=== PATIENT | female | born 1980 | race Caucasian/White ===

== ENCOUNTER 2016-12-04 01:11 | Emergency (ER) | payer OTHER ==
[~2016-12-04 01:11] MED LIST: METHADONE HCL10 MG PO; NORCO1 TA1 PO; PANTOPRAZOLE SO40 MG PO
--- NOTE | 2016-12-04 01:51 | ED ORDER SUMMARY ---
..... Patient: QUENTIN PALACIOS OrderSheet [facility] VisitID: [id number] [place] [address] 35y, F Registration Date/Time: 12/04/2016 ORDER SHEET Weight: 86.1 kg (stated) Allergies: Codeine GENERAL ORDERS: Ankle 3 or 4V Right Urgent (:12/04/2016 [facility]) (Ack 1:34 CHategekimana) (1:42 CBadeola R.N.) Foot 3V Right Urgent [facility] (Ack 1:34 Wilmerekimana) (1:42 Vera R.N.) - (cast shoe) (:[facility]2016 [facility] (1:55 CHategekimana) Crutches (after x-ray) (:[facility]/04/2016 [facility] (1:55 CHategekimana) MEDICATION ORDERS: Ibuprofen PO 600 mg (NOW) (01:12/04/2016 [facility] (1:37 Eboni R.N.) IV FLUIDS: ORDER SHEET NOTES: [Electronically signed by Dania Baker R.N. (02:12/04/2016)] [Electronically signed by James Lombardi DO (03:33 12/04/2016)] [Electronically locked/signed by Dania Baker R.N. (02:12/04/2016)]
--- NOTE | 2016-12-04 01:51 | ED CLINICAL REPORT ---
Clinical Report - Physicians/Mid Levels [facility] [address] [place] [address] 12/04/2016 1:12 [id number] Time Seen: 01:27. Arrived- By private vehicle. Historian- patient. HISTORY OF PRESENT ILLNESS Chief Complaint: LOWER EXTREMITY PAIN and ; PROBLEM IN THE RIGHT FOOT. Modifying factors- worsened by walking and movement. Relieved by remaining still. This started about 1 week ago and is still present. It was gradual in onset and has been waxing/waning. Severity is described as being moderate. The quality is noted to be "pain". No radiation. Symptoms located in the area of the right foot. The patient has not had redness. No swelling, sensory loss or motor loss. She has had difficulty walking. Patient notes the possibility of an injury. Similar symptoms previously: Recent medical care: Not recently seen/assessed. REVIEW OF SYSTEMS No cough, chest pain, difficulty breathing, fever or skin rash. No neck pain, back pain, headache, blurred vision or abdominal pain. No vomiting, diarrhea, black stools, difficulty with urination or bloody stools. PAST HISTORY ( PCP: [facility] PROBLEMS: Cholecystitis. Gallstone(s). Dental Abscess. Cholelithiasis. Rectal Bleed. Fall. Back Pain. Contusion. . Asthma. Dental Caries. Dental Pain SURGERIES: Cholecystectomy. Dental Surgery. Left hand surgery. Tubal Ligation). SOCIAL HISTORY Smoker- current status unknown. History of drug use: marijuana. No alcohol use. Residence: [place]. ADDITIONAL NOTES The nursing notes have been reviewed. PHYSICAL EXAM Vital Signs: 12/04/2016 01:16 BP: 132/81. HR: 104. RR: 18. O2 saturation: 98%. Temp: 97.7 F. Pain level now: 7/10. Appearance: Alert. Oriented X3. Anxious. Patient in mild distress. Eyes: Eyes normal inspection. No pale conjunctivae or scleral icterus. Neck: Normal inspection. CVS: Tachycardia. Heart sounds normal. Respiratory: No respiratory distress. Breath sounds normal. Abdomen: Soft and nontender. Back: Normal inspection. No tenderness. Skin: Skin intact. Skin warm and dry. Normal skin color. Normal skin turgor. Extremities: Right ankle: moderate tenderness localized to the lateral ligaments and malleolus, medial ligaments and malleolus, proximal foot and dorsolateral foot. Neurovascular intact distally. No ligamentous laxity present. No erythema, swelling, laceration, abrasion or ecchymosis. No puncture wound, foreign body or deformity. No limitation in ROM. Right foot: moderate tenderness located in the proximal aspect of the mid foot. Neurovascular intact distally. No erythema, swelling, laceration, abrasion or ecchymosis. No puncture wound, foreign body or deformity. No signs of infection involving the lower extremities. No calf tenderness. No tenderness in other extremity areas. Extremities otherwise negative. ( no proximal fibular tenderness). Neuro, Vascular and Tendons: No pulse deficit present. Lower extremity capillary refill not prolonged. Neuro: Oriented X 3. No motor deficit. No sensory deficit. LABS, X-RAYS, AND EKG Rt Ankle X-ray: No fracture. Normal alignment. No bony lesion or air in the soft tissue. Soft tissues normal. Joint spaces normal. Views: AP, lateral, mortise and oblique. Technique: good. The X-rays were interpreted contemporaneously by me. Rt Foot X-ray: No fracture. Normal alignment. No bony lesion, air in the soft tissue or foreign body. Soft tissues normal. Joint spaces normal. Views: AP, lateral and oblique. Technique: good. The X-rays were interpreted contemporaneously by me. Pulse Oximetry: 12/04/2016 01:16 O2 saturation: 98%. (FIO2 - room air). Interpretation: normal. PROGRESS AND PROCEDURES PROCEDURES (Cast shoe applied by [employer] for comfort and crutches given). Course of Care: Ibuprofen 600 mg PO given. 12/04/2016 02:06 BP: 137/88. HR: 79. RR: 18. O2 saturation: 97%. Pain level now: 10. Patient/family counseled. Old ED records reviewed. Disposition: Discharged. Condition: stable and improved. CLINICAL IMPRESSION Sprain of the tibiofibular, calcaneofibular and talofibular ligament of the right ankle and tarsal and tarsometatarsal ligaments of the right foot. Chronic substance abuse- tobacco (cigarettes), marijuana with anxiety. Clinical picture does not suggest cellulitis, abscess, deep venous thrombosis, superficial thrombophlebitis or atherosclerotic arterial disease. Clinical picture does not suggest claudication, acute arterial occlusion in the lower extremity, lumbar radiculopathy or a skin ulceration. INSTRUCTIONS Apply ice. Use crutches as needed. Elevate affected areas above chest level. Wear stiff soled shoe until released. You may walk and bear weight as tolerated. Do not work for two days. Warnings: Further evaluation is necessary in order to obtain test results and conduct further tests. It is very important to follow up with a physician. GENERAL WARNINGS: Return or contact your physician immediately if your condition worsens or changes unexpectedly, if not improving as expected, or if other problems arise. Your Current Medications: CONTINUE TAKING THE FOLLOWING MEDICATIONS: Methadose Oral : 45 mg daily. Prescription Medications: Ibuprofen 600mg tablets: take 1 tablet orally every 8 hours as needed for pain. Dispense thirty (30). No refills. OTC Medications: Acetaminophen (available over the counter): take according to label instructions. Follow-up: Follow up with your doctor in about three days. Follow-up with: Valentin Milton DPM, Podiatry, , [address] [facility], [place] [phone] Follow up in about three days. Call for the next available appointment. Follow-up with: [facility], , , [address], [facility], [id number]; [facility], , , [address] [place] [address] [place], Follow up in about three days. (Electronically signed by James Lombardi DO 12/04/2016 3:33)
--- NOTE | 2016-12-04 01:51 | ED NURSING NOTES ---
Clinical Report - Nurses [place] [address] [place] [address] 12/04/2016 1:12 Patient: QUENTIN PALACIOS TRIAGE Triage time 01:15. Acuity: LEVEL 4. Chief Complaint: RIGHT LOWER EXTREMITY PAIN. --01:22 Dania Baker R.N. 01:16 12/04/16. BP: 132/81 taken on the right arm, while lying. HR: 104 (regular and tachycardic). RR: 18. O2 saturation: 98% on room air. Temp: 97.7 F (oral). Pain level now: 02/04. --01:22 Dania Baker R.N. Weight: 86.1 kg stated. Height/Length: 63 inches Per Patient. BMI: 33.6. --01:18 Dania Baker R.N. Medications Methadose Oral 45 mg, daily. --01:19 Dania Baker R.N. Allergies Codeine. --01:19 Dania Baker R.N. History Arrived by private vehicle. Historian: patient. Unaccompanied. Primary physician ([facility]). No injury occurred. This occurred (week). ( pt reports feel like "something is chewing on the inside of my foot"). PAST MEDICAL HX: Last normal menstrual period- 2 days ago. 6. Para 6. SOCIAL HX: Light tobacco smoker (cigarette)- less than 1/2 a pack per day. History of occasional drug use: marijuana. No alcohol use. SELF HARM ASSESSMENT: A self harm assessment was performed. The patient answered "no" to the question "Have you recently felt down, depressed, or hopeless?", "Have you noticed less interest or pleasure in doing things?", "Do you have thoughts of harming or killing yourself?", "Are you here because you tried to hurt yourself?", "Have you ever tried to hurt yourself before today?", "Have you recently had thoughts about harming or killing others?" and "Do you have any dangerous items in your possession?". NUTRITIONAL RISK ASSESSMENT: The nutritional risk assessment revealed no deficiencies. FUNCTIONAL ASSESSMENT: Functional assessment: no impairments noted. --:22 Dania Baker R.N. PROBLEMS: Cholecystitis. Gallstone(s). Dental Abscess. Cholelithiasis. Rectal Bleed. Immunizations. Fall. Back Pain. Contusion. Tetanus Status. . LNMP - Last Normal Menstrual Period. Asthma. --:20 Dania Baker R.N. Dental Caries [RuleOut]. Dental Pain [RuleOut]. --:20 Dania Baker R.N. ADDITIONAL SURGERIES: Cholecystectomy. Dental Surgery. Left hand surgery. Tubal Ligation. --:20 Dania Baker R.N. Interventions ID band on patient. --:22 Dania Baker R.N. PHYSICAL ASSESSMENT To room via wheelchair. GENERAL / NEURO / PSYCH: Appears in no acute distress. Appears anxious. EXTREMITIES: Extremity pulses are within normal limits. Extremities exhibit normal ROM. Neuro-vascular status intact to the extremity. No lower extremity edema. Normal gait. Right foot. Limited weight bearing secondary to pain. SKIN: Skin intact. Skin is warm and dry. --:23 Dania Baker R.N. NURSING PROGRESS NOTES Two patient identifiers checked. Call light placed in reach. Side rails up x 1. Bed placed in lowest position. Brakes of bed on. --:23 Dania Baker R.N. Patient ready for evaluation- chart flagged. --:23 Dania Baker R.N. 01:37 12/04/2016 Ibuprofen PO 600 mg given. Allergies verified and confirmed 5 rights. --01:37 Massiel Sy ( 0155 cast shoe and crutches applied.). --01:59 Juani Daniels. DISPOSITION / DISCHARGE Condition at departure: improved and stable. No learning barriers present. Discharge instructions provided and reviewed with the patient. Reviewed medication(s) side effects, precautions, dosing and course information. Prescription(s) given to the patient. Activity restrictions (minimal use of injured extremity and rest) reviewed. Work note given. Patient verbalized understanding. Written instructions provided in Yi. The patient was discharged home and unaccompanied at time of discharge. She left the Emergency Department ambulatory on crutches and via private vehicle. Patient driving. --02:08 Dania Baker R.N. 02:06 12/04/16. BP: 137/88 taken on the left arm, while sitting. HR: 79. RR: 18 (regular and unlabored). O2 saturation: 97% on room air. Temp: deferred. Pain level now: 11/05. --02:08 Dania Baker R.N. Departure time: 0203. --02:08 Dania Baker R.N. Locked/Released at 12/04/2016 2:08 by Dania Baker R.N.
--- NOTE | 2016-12-04 01:51 | ED ORDER SUMMARY ---
..... Patient: QUENTIN PALACIOS OrderSheet [facility] VisitID: [id number] [place] [address] 35y, F Registration Date/Time: 12/04/2016 ORDER SHEET Weight: 86.1 kg (stated) Allergies: Codeine GENERAL ORDERS: Ankle 3 or 4V Right Urgent (:12/04/2016 [facility]) (Ack 1:34 CHategekimana) (1:42 CBadeola R.N.) Foot 3V Right Urgent [facility] (Ack 1:34 Wilmerekimana) (1:42 Vera R.N.) - (cast shoe) (:[facility]/04/2016 [facility] (1:55 CHategekimana) Crutches (after x-ray) (:[facility]/04/2016 [facility] (1:55 CHategekimana) MEDICATION ORDERS: Ibuprofen PO 600 mg (NOW) (01:12/04/2016 [facility] (1:37 Eboni R.N.) IV FLUIDS: ORDER SHEET NOTES: [Electronically signed by Dania Baker R.N. (02:12/04/2016)] [Electronically signed by James Lombardi DO (03:33 12/04/2016)] [Electronically locked/signed by Dania Baker R.N. (02:12/04/2016)]
--- NOTE | 2016-12-04 01:51 | ED NURSING NOTES ---
Clinical Report - Nurses [place] [address] [place] [address] 12/04/2016 1:12 Patient: QUENTIN PALACIOS TRIAGE Triage time 01:15. Acuity: LEVEL 4. Chief Complaint: RIGHT LOWER EXTREMITY PAIN. --01:22 Dania Baker R.N. 01:16 12/04/16. BP: 132/81 taken on the right arm, while lying. HR: 104 (regular and tachycardic). RR: 18. O2 saturation: 98% on room air. Temp: 97.7 F (oral). Pain level now: 02/04. --01:22 Dania Baker R.N. Weight: 86.1 kg stated. Height/Length: 63 inches Per Patient. BMI: 33.6. --01:18 Dania Baker R.N. Medications Methadose Oral 45 mg, daily. --01:19 Dania Baker R.N. Allergies Codeine. --01:19 Dania Baker R.N. History Arrived by private vehicle. Historian: patient. Unaccompanied. Primary physician ([facility]). No injury occurred. This occurred (week). ( pt reports feel like "something is chewing on the inside of my foot"). PAST MEDICAL HX: Last normal menstrual period- 2 days ago. 6. Para 6. SOCIAL HX: Light tobacco smoker (cigarette)- less than 1/2 a pack per day. History of occasional drug use: marijuana. No alcohol use. SELF HARM ASSESSMENT: A self harm assessment was performed. The patient answered "no" to the question "Have you recently felt down, depressed, or hopeless?", "Have you noticed less interest or pleasure in doing things?", "Do you have thoughts of harming or killing yourself?", "Are you here because you tried to hurt yourself?", "Have you ever tried to hurt yourself before today?", "Have you recently had thoughts about harming or killing others?" and "Do you have any dangerous items in your possession?". NUTRITIONAL RISK ASSESSMENT: The nutritional risk assessment revealed no deficiencies. FUNCTIONAL ASSESSMENT: Functional assessment: no impairments noted. --:22 Dania Baker R.N. PROBLEMS: Cholecystitis. Gallstone(s). Dental Abscess. Cholelithiasis. Rectal Bleed. Immunizations. Fall. Back Pain. Contusion. Tetanus Status. . LNMP - Last Normal Menstrual Period. Asthma. --:20 Dania Baker R.N. Dental Caries [RuleOut]. Dental Pain [RuleOut]. --:20 Dania Baker R.N. ADDITIONAL SURGERIES: Cholecystectomy. Dental Surgery. Left hand surgery. Tubal Ligation. --:20 Dania Baker R.N. Interventions ID band on patient. --:22 Dania Baker R.N. PHYSICAL ASSESSMENT To room via wheelchair. GENERAL / NEURO / PSYCH: Appears in no acute distress. Appears anxious. EXTREMITIES: Extremity pulses are within normal limits. Extremities exhibit normal ROM. Neuro-vascular status intact to the extremity. No lower extremity edema. Normal gait. Right foot. Limited weight bearing secondary to pain. SKIN: Skin intact. Skin is warm and dry. --:23 Dania Baker R.N. NURSING PROGRESS NOTES Two patient identifiers checked. Call light placed in reach. Side rails up x 1. Bed placed in lowest position. Brakes of bed on. --:23 Dania Baker R.N. Patient ready for evaluation- chart flagged. --:23 Dania Baker R.N. 01:37 12/04/2016 Ibuprofen PO 600 mg given. Allergies verified and confirmed 5 rights. --01:37 Massiel Sy ( 0155 cast shoe and crutches applied.). --01:59 Juani Daniels. DISPOSITION / DISCHARGE Condition at departure: improved and stable. No learning barriers present. Discharge instructions provided and reviewed with the patient. Reviewed medication(s) side effects, precautions, dosing and course information. Prescription(s) given to the patient. Activity restrictions (minimal use of injured extremity and rest) reviewed. Work note given. Patient verbalized understanding. Written instructions provided in Sami. The patient was discharged home and unaccompanied at time of discharge. She left the Emergency Department ambulatory on crutches and via private vehicle. Patient driving. --02:08 Dania Baker R.N. 02:06 12/04/16. BP: 137/88 taken on the left arm, while sitting. HR: 79. RR: 18 (regular and unlabored). O2 saturation: 97% on room air. Temp: deferred. Pain level now: 11/05. --02:08 Dania Baker R.N. Departure time: 0203. --02:08 Dania Baker R.N. Locked/Released at 12/04/2016 2:08 by Dania Baker R.N.
--- NOTE | 2016-12-04 01:51 | ED CLINICAL REPORT ---
Clinical Report - Physicians/Mid Levels [facility] [address] [place] [address] 12/04/2016 1:12 [id number] Time Seen: 01:27. Arrived- By private vehicle. Historian- patient. HISTORY OF PRESENT ILLNESS Chief Complaint: LOWER EXTREMITY PAIN and ; PROBLEM IN THE RIGHT FOOT. Modifying factors- worsened by walking and movement. Relieved by remaining still. This started about 1 week ago and is still present. It was gradual in onset and has been waxing/waning. Severity is described as being moderate. The quality is noted to be "pain". No radiation. Symptoms located in the area of the right foot. The patient has not had redness. No swelling, sensory loss or motor loss. She has had difficulty walking. Patient notes the possibility of an injury. Similar symptoms previously: Recent medical care: Not recently seen/assessed. REVIEW OF SYSTEMS No cough, chest pain, difficulty breathing, fever or skin rash. No neck pain, back pain, headache, blurred vision or abdominal pain. No vomiting, diarrhea, black stools, difficulty with urination or bloody stools. PAST HISTORY ( PCP: [facility] PROBLEMS: Cholecystitis. Gallstone(s). Dental Abscess. Cholelithiasis. Rectal Bleed. Fall. Back Pain. Contusion. . Asthma. Dental Caries. Dental Pain SURGERIES: Cholecystectomy. Dental Surgery. Left hand surgery. Tubal Ligation). SOCIAL HISTORY Smoker- current status unknown. History of drug use: marijuana. No alcohol use. Residence: [place]. ADDITIONAL NOTES The nursing notes have been reviewed. PHYSICAL EXAM Vital Signs: 12/04/2016 01:16 BP: 132/81. HR: 104. RR: 18. O2 saturation: 98%. Temp: 97.7 F. Pain level now: 7/10. Appearance: Alert. Oriented X3. Anxious. Patient in mild distress. Eyes: Eyes normal inspection. No pale conjunctivae or scleral icterus. Neck: Normal inspection. CVS: Tachycardia. Heart sounds normal. Respiratory: No respiratory distress. Breath sounds normal. Abdomen: Soft and nontender. Back: Normal inspection. No tenderness. Skin: Skin intact. Skin warm and dry. Normal skin color. Normal skin turgor. Extremities: Right ankle: moderate tenderness localized to the lateral ligaments and malleolus, medial ligaments and malleolus, proximal foot and dorsolateral foot. Neurovascular intact distally. No ligamentous laxity present. No erythema, swelling, laceration, abrasion or ecchymosis. No puncture wound, foreign body or deformity. No limitation in ROM. Right foot: moderate tenderness located in the proximal aspect of the mid foot. Neurovascular intact distally. No erythema, swelling, laceration, abrasion or ecchymosis. No puncture wound, foreign body or deformity. No signs of infection involving the lower extremities. No calf tenderness. No tenderness in other extremity areas. Extremities otherwise negative. ( no proximal fibular tenderness). Neuro, Vascular and Tendons: No pulse deficit present. Lower extremity capillary refill not prolonged. Neuro: Oriented X 3. No motor deficit. No sensory deficit. LABS, X-RAYS, AND EKG Rt Ankle X-ray: No fracture. Normal alignment. No bony lesion or air in the soft tissue. Soft tissues normal. Joint spaces normal. Views: AP, lateral, mortise and oblique. Technique: good. The X-rays were interpreted contemporaneously by me. Rt Foot X-ray: No fracture. Normal alignment. No bony lesion, air in the soft tissue or foreign body. Soft tissues normal. Joint spaces normal. Views: AP, lateral and oblique. Technique: good. The X-rays were interpreted contemporaneously by me. Pulse Oximetry: 12/04/2016 01:16 O2 saturation: 98%. (FIO2 - room air). Interpretation: normal. PROGRESS AND PROCEDURES PROCEDURES (Cast shoe applied by [employer] for comfort and crutches given). Course of Care: Ibuprofen 600 mg PO given. 12/04/2016 02:06 BP: 137/88. HR: 79. RR: 18. O2 saturation: 97%. Pain level now: 10. Patient/family counseled. Old ED records reviewed. Disposition: Discharged. Condition: stable and improved. CLINICAL IMPRESSION Sprain of the tibiofibular, calcaneofibular and talofibular ligament of the right ankle and tarsal and tarsometatarsal ligaments of the right foot. Chronic substance abuse- tobacco (cigarettes), marijuana with anxiety. Clinical picture does not suggest cellulitis, abscess, deep venous thrombosis, superficial thrombophlebitis or atherosclerotic arterial disease. Clinical picture does not suggest claudication, acute arterial occlusion in the lower extremity, lumbar radiculopathy or a skin ulceration. INSTRUCTIONS Apply ice. Use crutches as needed. Elevate affected areas above chest level. Wear stiff soled shoe until released. You may walk and bear weight as tolerated. Do not work for two days. Warnings: Further evaluation is necessary in order to obtain test results and conduct further tests. It is very important to follow up with a physician. GENERAL WARNINGS: Return or contact your physician immediately if your condition worsens or changes unexpectedly, if not improving as expected, or if other problems arise. Your Current Medications: CONTINUE TAKING THE FOLLOWING MEDICATIONS: Methadose Oral : 45 mg daily. Prescription Medications: Ibuprofen 600mg tablets: take 1 tablet orally every 8 hours as needed for pain. Dispense thirty (30). No refills. OTC Medications: Acetaminophen (available over the counter): take according to label instructions. Follow-up: Follow up with your doctor in about three days. Follow-up with: Valentin Milton DPM, Podiatry, , [address] [facility], [place] [phone] Follow up in about three days. Call for the next available appointment. Follow-up with: [facility], , , [address], [facility], [address]; [facility], , , [address] [place] [address] [place], Follow up in about three days. (Electronically signed by James Lombardi DO 12/04/2016 3:33)
--- NOTE | 2016-12-04 03:34 | ED MED RECONCILIATION SUMMARY ---
Patient: QUENTIN PALACIOS Medication Reconciliation Report [facility] VisitID: [id number] [address] [place] [address] 35y, F Registration Date/Time: 12/04/2016 Weight: 86.1 kg Height/Length: 63 in. BMI: 33.6 ALLERGIES: Codeine The patient's Home Medications are listed below: CONTINUE TAKING THE FOLLOWING MEDICATIONS: Methadose Oral 45 mg, daily The source(s) of the original Home Medication information: Not obtained. The following Medications were given to the patient in the Emergency Department: Ibuprofen [PO] PO 600 mg, administered: 12/04/2016 1:37:00 AM The following Medications were prescribed to the patient: Acetaminophen (available over the counter): take according to label instructions. -- James Lombardi DO Ibuprofen 600mg tablets: take 1 tablet orally every 8 hours as needed for pain. Dispense thirty (30). No refills. -- James Lombardi DO
--- NOTE | 2016-12-04 03:34 | ED DISCHARGE INSTRUCTIONS ---
Patient: QUENTIN PALACIOS General Instructions [facility] VisitID: [id number] [address] [place] [address] 35y, F Registration Date/Time: 12/04/2016 Sprain of the tibiofibular, calcaneofibular and talofibular ligament of the right ankle and tarsal and tarsometatarsal ligaments of the right foot. Chronic substance abuse- tobacco (cigarettes), marijuana with anxiety. INSTRUCTIONS Apply ice. Use crutches as needed. Elevate affected areas above chest level. Wear stiff soled shoe until released. You may walk and bear weight as tolerated. Do not work for two days. Warnings: Further evaluation is necessary in order to obtain test results and conduct further tests. It is very important to follow up with a physician. GENERAL WARNINGS: Return or contact your physician immediately if your condition worsens or changes unexpectedly, if not improving as expected, or if other problems arise. Your Current Medications: CONTINUE TAKING THE FOLLOWING MEDICATIONS: Methadose Oral : 45 mg daily. Prescription Medications: Ibuprofen 600mg tablets: take 1 tablet orally every 8 hours as needed for pain. Dispense thirty (30). No refills. OTC Medications: Acetaminophen (available over the counter): take according to label instructions. Follow-up: Follow up with your doctor in about three days. Follow-up with: Valentin Milton DPM, Podiatry, , [address] [place] [address]. [address], [facility] [address] Follow up in about three days. Call for the next available appointment. Follow-up with: [facility], , , [address], , [place], [address]; [facility], , , [address] [place] [address], [place], Follow up in about three days. ADDITIONAL INFORMATION Sprain, Ankle,With X-Ray A sprain is an injury to the ligaments or capsule that holds a joint together. There are no broken bones. Most sprains take from four to six weeks to heal. If the ligament is completely torn (severe sprain), it can take several months to recover. Mild to moderate sprains may be treated with an elastic wrap or an in-shoe splint to provide support and prevent re-injury. A mild sprain may not require any additional support. A severe sprain may require surgery to repair. Home care The following guidelines will help you care for your injury at home: Stay off the injured leg as much as possible until you can walk on it without pain. If you have a lot of pain with walking, crutches or a walker may be prescribed. (These can be rented or purchased at many pharmacies and surgical or orthopedic supply stores). Follow your doctor's advice regarding when to begin bearing weight on that leg. Keep your leg elevated to reduce pain and swelling. When sleeping, place a pillow under the injured leg. When sitting, support the injured leg so it is level with your waist. This is very important during the first 48 hours. Apply an ice pack (ice cubes in a plastic bag, wrapped in a towel) over the injured area for 20 minutes every 12 hours the first day. You can place the ice pack directly over the splint/cast. If you were given a boot, open it to apply the ice pack. Continue with ice packs 34 times a day for the next two days, then as needed for the relief of pain and swelling. You may use acetaminophen or ibuprofen to control pain, unless another pain medicine was prescribed. If you have chronic liver or kidney disease or ever had a stomach ulcer or GI bleeding, talk with your doctor before using these medicines. You may return to sports after healing, when you can run without pain. A sprained ankle is at risk for re-injury during the first six weeks. During that time, protect your ankle with an in-shoe splint that prevents tilting of your ankle from side to side. This is very important if you do active work or play sports during that time. Follow-up care Any X-rays you had today dont show any broken bones, breaks, or fractures. Sometimes fractures dont show up on the first X-ray. Bruises and sprains can sometimes hurt as much as a fracture. These injuries can take time to heal completely. If your symptoms dont improve or they get worse, talk with your doctor. You may need a repeat X-ray. When to seek medical care Get prompt medical attention if any of the following occur: The plaster cast or splint gets wet or soft The fiberglass cast or splint gets wet and does not dry for 24 hours Pain or swelling increases, or redness appears Toes become cold, blue, numb or tingly Re-injure your ankle Sprain, Foot A sprain is a stretching or tearing of the ligaments that hold a joint together. There are no broken bones. Sprains take from 36 weeks to heal. A sprain may be treated with a splint, walking cast or special boot. Mild sprains may not require any additional support. Home care The following guidelines will help you care for your injury at home: Keep your leg elevated when sitting or lying down. This is very important during the first 48 hours to reduce swelling. Stay off the injured foot as much as possible until you can walk on it without pain. If needed, you may use crutches during the first week for this purpose. (Crutches can be rented at many pharmacies or surgical/orthopedic supply stores). You may be given a cast shoe to wear to prevent movement in your foot. If not, you can use a sandal or any shoe that does not put pressure on the injured area until the swelling and pain go away. If using a sandal, be careful not to strike your foot against anything, since another injury could make the sprain worse. Apply an ice pack (ice cubes in a plastic bag, wrapped in a towel) over the injured area for 20 minutes every 12 hours the first day. You should continue with ice packs 34 times a day for the next two days. Continue the use of ice packs for relief of pain and swelling as needed. You may use acetaminophen or ibuprofen to control pain, unless another medicine was prescribed. If you have chronic liver or kidney disease or ever had a stomach ulcer or GI bleeding, talk with your doctor before using these medicines. If you were given a splint or cast, keep it dry. Bathe with your splint/cast well out of the water, protected with a large plastic bag, rubber-banded at the top end. If a fiberglass splint or cast gets wet, you can dry it with a hair-dryer. You may return to sports after healing, when you can run without pain. Follow-up care Follow up with your doctor as directed. Any X-rays you had today dont show any broken bones, breaks, or fractures. Sometimes fractures dont show up on the first X-ray. Bruises and sprains can sometimes hurt as much as a fracture. These injuries can take time to heal completely. If your symptoms dont improve or they get worse, talk with your doctor. You may need a repeat X-ray. When to seek medical care Get prompt medical attention if any of the following occur: The plaster cast or splint gets wet or soft The fiberglass cast or splint gets wet and does not dry for 24 hours Pain or swelling increases, or redness appears Toes become cold, blue, numb, or tingly Marijuana Abuse Marijuana is the most widely used illegal drug in the [place]. It is called by various names such as pot, weed, blunts, grass, reefer, ganja, hash, hashish. It is usually smoked but can be mixed with foods or brewed as a tea. It is sometimes sold with PCP (Manuel Dust) or amphetamine mixed in it. These drugs can cause other harmful side effects. Marijuana can cause the following effects: Changes in mood (stimulated, happy, drowsy, depressed, paranoid) Hallucinations Increased heart rate and blood pressure Increased appetite Time distortion, difficulty concentrating, impaired memory Lung damage (similar to cigarettes with chronic cough, wheezing, frequent colds and bronchitis) You can become psychologically dependent on marijuana. That means the craving to use the drug is emotional or psychological rather than due to physical withdrawal. Is Marijuana Running Your Life? Here are some of the signs: Relying on marijuana to feel good, forget problems, deal with stress or to relax Wanting to be alone most of the time or only with others who use drugs Losing interest in things that used to be important Changes in school or job performance or attendance Spending a lot of time thinking about how to get marijuana Stealing or selling your things so you can buy marijuana Unable to stop using even though you may want to quit Increasing anxiety, anger,or depression Sleeping too much, changes in eating habits (weight loss or gain) Needing to use more to get the same effect Home Care Once you have become addicted to any drug, quitting is hard to do. Most people find they can't quit without help. So, dont try to do this alone. Talk to someone you trust who can support you. Seek professional help. Avoid people and places where drugs are used. That only increases the temptation to use. Follow Up with your doctor or as advised by our staff. For more information or a referral to a treatment center in your area, contact: Your local mental health center or the National Alcohol and Substance Abuse Information Center (752)-319-6576 www.addictioncareCloud [employer] National [place] on Alcoholism and Drug Dependence 557-944-GACU www.ncadd.org Marijuana Anonymous 901-380-3515 www.marijuana-anonymous.org Get Prompt Medical Attention if any of the following occur: You feel extreme depression, fear, anxiety, or anger toward yourself or others You feel out of control You feel that you may try to harm yourself or another Crutch Walking Crutch Adjustment Make sure the crutches you use are adjusted to fit you. When you stand, there should be room to fit 2-3 fingers between the top of the crutch and your armpit. Your elbow should be slightly bent when holding the hand seedling sorter. Crutch Walking: Place the crutches forward 12" in front of and 6" to the side of your feet. Lean your weight forward as you push down on the handgrips. Your weight should be on your hands and yourstrong leg, not your armpits . Let your body swing through, landing on the strong leg. Advance the crutches forward again. The crutch and the injured leg should move together. Going Up Steps: ("Up with the good") With both crutches on the same step as your feet, push down on the handgrips. Balancing with very light pressure on the weak leg, let your hands support your weight as you raise your strong leg onto the next higher step. Transfer all your weight to your strong leg (still bent) as you move the crutches up to the next step alongside the strong leg. With your weight evenly balanced on the two crutches and your strong leg, straighten your strong knee as you raise the weak leg up to the next step. Going Down Steps: ("Down with the bad") With both crutches on the same step as your feet, push down on the handgrips. With your weight evenly balanced on the two crutches and your strong leg, bend your strong knee as you lower the weak leg down to the next step. Let your strong leg support you (still bent) as you move the crutches down alongside the weak leg. Transfer your weight to your hands, balancing with very light pressure on the weak leg as you lower your strong leg alongside your weak leg. Ibuprofen Oral tablet What is this medicine? IBUPROFEN (eye BYOO proe fen) is a non-steroidal anti-inflammatory drug (NSAID). It is used for dental pain, fever, headaches or migraines, osteoarthritis, rheumatoid arthritis, or painful monthly periods. It can also relieve minor aches and pains caused by a cold, flu, or sore throat. How should I use this medicine? Take this medicine by mouth with a glass of water. Follow the directions on the prescription label. Take this medicine with food if your stomach gets upset. Try to not lie down for at least 10 minutes after you take the medicine. Take your medicine at regular intervals. Do not take your medicine more often than directed. A special MedGuide will be given to you by the pharmacist with each prescription and refill. Be sure to read this information carefully each time. Talk to your veneer jointer offbearer regarding the use of this medicine in children. Special care may be needed. What side effects may I notice from receiving this medicine? Side effects that you should report to your doctor or health client care coordinator as soon as possible: allergic reactions like skin rash, itching or hives, swelling of the face, lips, or tongue black or bloody stools, blood in the urine or in vomit breathing problems changes in vision chest pain general ill feeling or flu-like symptoms nausea or vomiting redness, blistering, peeling or loosening of the skin, including inside the mouth slurred speech or weakness on one side of the body stomach pain unexplained weight gain or swelling unusually weak or tired yellowing of eyes or skin Side effects that usually do not require medical attention (report to your doctor or health client care coordinator if they continue or are bothersome): constipation or diarrhea dizziness gas or heartburn stomach upset What may interact with this medicine? Do not take this medicine with any of the following medications: cidofovir ketorolac methotrexate pemetrexed This medicine may also interact with the following medications: alcohol aspirin diuretics lithium other drugs for inflammation like prednisone warfarin What if I miss a dose? If you miss a dose, take it as soon as you can. If it is almost time for your next dose, take only that dose. Do not take double or extra doses. Where should I keep my medicine? Keep out of the reach of children. Store at room temperature between 15 and 30 degrees C (59 and 86 degrees F). Keep container tightly closed. Throw away any unused medicine after the expiration date. What should I tell my health care provider before I take this medicine? They need to know if you have any of these conditions: asthma cigarette smoker drink more than 3 alcohol containing drinks a day heart disease or circulation problems such as heart failure or leg edema (fluid retention) high blood pressure kidney disease liver disease stomach bleeding or ulcers an unusual or allergic reaction to ibuprofen, aspirin, other NSAIDS, other medicines, foods, dyes, or preservatives or trying to get breast-feeding What should I watch for while using this medicine? Tell your doctor or healthcare professional if your symptoms do not start to get better or if they get worse. This medicine does not prevent heart attack or stroke. In fact, this medicine may increase the chance of a heart attack or stroke. The chance may increase with longer use of this medicine and in people who have heart disease. If you take aspirin to prevent heart attack or stroke, talk with your doctor or health client care coordinator. Do not take other medicines that contain aspirin, ibuprofen, or naproxen with this medicine. Side effects such as stomach upset, nausea, or ulcers may be more likely to occur. Many medicines available without a prescription should not be taken with this medicine. This medicine can cause ulcers and bleeding in the stomach and intestines at any time during treatment. Ulcers and bleeding can happen without warning symptoms and can cause . To reduce your risk, do not smoke cigarettes or drink alcohol while you are taking this medicine. You may get drowsy or dizzy. Do not drive, use machinery, or do anything that needs mental alertness until you know how this medicine affects you. Do not stand or sit up quickly, especially if you are an older patient. This reduces the risk of dizzy or fainting spells. This medicine can cause you to bleed more easily. Try to avoid damage to your teeth and gums when you brush or floss your teeth. Acetaminophen Oral tablet What is this medicine? ACETAMINOPHEN (a set a PEACE lindsay fen) is a pain reliever. It is used to treat mild pain and fever. How should I use this medicine? Take this medicine by mouth with a glass of water. Follow the directions on the package or prescription label. Take your medicine at regular intervals. Do not take your medicine more often than directed. Talk to your veneer jointer offbearer regarding the use of this medicine in children. While this drug may be prescribed for children as young as 6 years of age for selected conditions, precautions do apply. What side effects may I notice from receiving this medicine? Side effects that you should report to your doctor or health client care coordinator as soon as possible: allergic reactions like skin rash, itching or hives, swelling of the face, lips, or tongue breathing problems fever or sore throat redness, blistering, peeling or loosening of the skin, including inside the mouth trouble passing urine or change in the amount of urine unusual bleeding or bruising unusually weak or tired yellowing of the eyes or skin Side effects that usually do not require medical attention (report to your doctor or health client care coordinator if they continue or are bothersome): headache nausea, stomach upset What may interact with this medicine? alcohol imatinib isoniazid other medicines with acetaminophen What if I miss a dose? If you miss a dose, take it as soon as you can. If it is almost time for your next dose, take only that dose. Do not take double or extra doses. Where should I keep my medicine? Keep out of reach of children. Store at room temperature between 20 and 25 degrees C (68 and 77 degrees F). Protect from moisture and heat. Throw away any unused medicine after the expiration date. What should I tell my health care provider before I take this medicine? They need to know if you have any of these conditions: if you frequently drink alcohol containing drinks liver disease an unusual or allergic reaction to acetaminophen, other medicines, foods, dyes or preservatives or trying to get breast-feeding What should I watch for while using this medicine? Tell your doctor or health client care coordinator if the pain lasts more than 10 days (5 days for children), if it gets worse, or if there is a new or different kind of pain. Also, check with your doctor if a fever lasts for more than 3 days. Do not take other medicines that contain acetaminophen with this medicine. Always read labels carefully. If you have questions, ask your doctor or pharmacist. If you take too much acetaminophen get medical help right away. Too much acetaminophen can be very dangerous and cause liver damage. Even if you do not have symptoms, it is important to get help right away. You have been given the following additional information: Sprain, Ankle, With X-Ray Sprain, Foot Marijuana Abuse Crutch Walking Ibuprofen Oral tablet Acetaminophen Oral tablet You may walk and bear weight as tolerated. Do not work for two days. (Electronically signed by James Lombardi DO 12/04/2016 3:33)
--- NOTE | 2016-12-04 03:34 | ED MED RECONCILIATION SUMMARY ---
Patient: QUENTIN PALACIOS Medication Reconciliation Report [facility] VisitID: [id number] [address] [place] [address] 35y, F Registration Date/Time: 12/04/2016 Weight: 86.1 kg Height/Length: 63 in. BMI: 33.6 ALLERGIES: Codeine The patient's Home Medications are listed below: CONTINUE TAKING THE FOLLOWING MEDICATIONS: Methadose Oral 45 mg, daily The source(s) of the original Home Medication information: Not obtained. The following Medications were given to the patient in the Emergency Department: Ibuprofen [PO] PO 600 mg, administered: 12/04/2016 1:37:00 AM The following Medications were prescribed to the patient: Acetaminophen (available over the counter): take according to label instructions. -- James Lombardi DO Ibuprofen 600mg tablets: take 1 tablet orally every 8 hours as needed for pain. Dispense thirty (30). No refills. -- James Lombardi DO
--- NOTE | 2016-12-04 03:34 | ED DISCHARGE INSTRUCTIONS ---
Patient: QUENTIN PALACIOS General Instructions [facility] VisitID: [id number] [address] [place] [address] 35y, F Registration Date/Time: 12/04/2016 Sprain of the tibiofibular, calcaneofibular and talofibular ligament of the right ankle and tarsal and tarsometatarsal ligaments of the right foot. Chronic substance abuse- tobacco (cigarettes), marijuana with anxiety. INSTRUCTIONS Apply ice. Use crutches as needed. Elevate affected areas above chest level. Wear stiff soled shoe until released. You may walk and bear weight as tolerated. Do not work for two days. Warnings: Further evaluation is necessary in order to obtain test results and conduct further tests. It is very important to follow up with a physician. GENERAL WARNINGS: Return or contact your physician immediately if your condition worsens or changes unexpectedly, if not improving as expected, or if other problems arise. Your Current Medications: CONTINUE TAKING THE FOLLOWING MEDICATIONS: Methadose Oral : 45 mg daily. Prescription Medications: Ibuprofen 600mg tablets: take 1 tablet orally every 8 hours as needed for pain. Dispense thirty (30). No refills. OTC Medications: Acetaminophen (available over the counter): take according to label instructions. Follow-up: Follow up with your doctor in about three days. Follow-up with: Valentin Milton DPM, Podiatry, , [address] [place] [address]. [address], [facility] [address] Follow up in about three days. Call for the next available appointment. Follow-up with: [facility], , , [address], , [place], [address]; [facility], , , [address] [place] [address], [place], Follow up in about three days. ADDITIONAL INFORMATION Sprain, Ankle,With X-Ray A sprain is an injury to the ligaments or capsule that holds a joint together. There are no broken bones. Most sprains take from four to six weeks to heal. If the ligament is completely torn (severe sprain), it can take several months to recover. Mild to moderate sprains may be treated with an elastic wrap or an in-shoe splint to provide support and prevent re-injury. A mild sprain may not require any additional support. A severe sprain may require surgery to repair. Home care The following guidelines will help you care for your injury at home: Stay off the injured leg as much as possible until you can walk on it without pain. If you have a lot of pain with walking, crutches or a walker may be prescribed. (These can be rented or purchased at many pharmacies and surgical or orthopedic supply stores). Follow your doctor's advice regarding when to begin bearing weight on that leg. Keep your leg elevated to reduce pain and swelling. When sleeping, place a pillow under the injured leg. When sitting, support the injured leg so it is level with your waist. This is very important during the first 48 hours. Apply an ice pack (ice cubes in a plastic bag, wrapped in a towel) over the injured area for 20 minutes every 12 hours the first day. You can place the ice pack directly over the splint/cast. If you were given a boot, open it to apply the ice pack. Continue with ice packs 34 times a day for the next two days, then as needed for the relief of pain and swelling. You may use acetaminophen or ibuprofen to control pain, unless another pain medicine was prescribed. If you have chronic liver or kidney disease or ever had a stomach ulcer or GI bleeding, talk with your doctor before using these medicines. You may return to sports after healing, when you can run without pain. A sprained ankle is at risk for re-injury during the first six weeks. During that time, protect your ankle with an in-shoe splint that prevents tilting of your ankle from side to side. This is very important if you do active work or play sports during that time. Follow-up care Any X-rays you had today dont show any broken bones, breaks, or fractures. Sometimes fractures dont show up on the first X-ray. Bruises and sprains can sometimes hurt as much as a fracture. These injuries can take time to heal completely. If your symptoms dont improve or they get worse, talk with your doctor. You may need a repeat X-ray. When to seek medical care Get prompt medical attention if any of the following occur: The plaster cast or splint gets wet or soft The fiberglass cast or splint gets wet and does not dry for 24 hours Pain or swelling increases, or redness appears Toes become cold, blue, numb or tingly Re-injure your ankle Sprain, Foot A sprain is a stretching or tearing of the ligaments that hold a joint together. There are no broken bones. Sprains take from 36 weeks to heal. A sprain may be treated with a splint, walking cast or special boot. Mild sprains may not require any additional support. Home care The following guidelines will help you care for your injury at home: Keep your leg elevated when sitting or lying down. This is very important during the first 48 hours to reduce swelling. Stay off the injured foot as much as possible until you can walk on it without pain. If needed, you may use crutches during the first week for this purpose. (Crutches can be rented at many pharmacies or surgical/orthopedic supply stores). You may be given a cast shoe to wear to prevent movement in your foot. If not, you can use a sandal or any shoe that does not put pressure on the injured area until the swelling and pain go away. If using a sandal, be careful not to strike your foot against anything, since another injury could make the sprain worse. Apply an ice pack (ice cubes in a plastic bag, wrapped in a towel) over the injured area for 20 minutes every 12 hours the first day. You should continue with ice packs 34 times a day for the next two days. Continue the use of ice packs for relief of pain and swelling as needed. You may use acetaminophen or ibuprofen to control pain, unless another medicine was prescribed. If you have chronic liver or kidney disease or ever had a stomach ulcer or GI bleeding, talk with your doctor before using these medicines. If you were given a splint or cast, keep it dry. Bathe with your splint/cast well out of the water, protected with a large plastic bag, rubber-banded at the top end. If a fiberglass splint or cast gets wet, you can dry it with a hair-dryer. You may return to sports after healing, when you can run without pain. Follow-up care Follow up with your doctor as directed. Any X-rays you had today dont show any broken bones, breaks, or fractures. Sometimes fractures dont show up on the first X-ray. Bruises and sprains can sometimes hurt as much as a fracture. These injuries can take time to heal completely. If your symptoms dont improve or they get worse, talk with your doctor. You may need a repeat X-ray. When to seek medical care Get prompt medical attention if any of the following occur: The plaster cast or splint gets wet or soft The fiberglass cast or splint gets wet and does not dry for 24 hours Pain or swelling increases, or redness appears Toes become cold, blue, numb, or tingly Marijuana Abuse Marijuana is the most widely used illegal drug in the [place]. It is called by various names such as pot, weed, blunts, grass, reefer, ganja, hash, hashish. It is usually smoked but can be mixed with foods or brewed as a tea. It is sometimes sold with PCP (Manuel Dust) or amphetamine mixed in it. These drugs can cause other harmful side effects. Marijuana can cause the following effects: Changes in mood (stimulated, happy, drowsy, depressed, paranoid) Hallucinations Increased heart rate and blood pressure Increased appetite Time distortion, difficulty concentrating, impaired memory Lung damage (similar to cigarettes with chronic cough, wheezing, frequent colds and bronchitis) You can become psychologically dependent on marijuana. That means the craving to use the drug is emotional or psychological rather than due to physical withdrawal. Is Marijuana Running Your Life? Here are some of the signs: Relying on marijuana to feel good, forget problems, deal with stress or to relax Wanting to be alone most of the time or only with others who use drugs Losing interest in things that used to be important Changes in school or job performance or attendance Spending a lot of time thinking about how to get marijuana Stealing or selling your things so you can buy marijuana Unable to stop using even though you may want to quit Increasing anxiety, anger,or depression Sleeping too much, changes in eating habits (weight loss or gain) Needing to use more to get the same effect Home Care Once you have become addicted to any drug, quitting is hard to do. Most people find they can't quit without help. So, dont try to do this alone. Talk to someone you trust who can support you. Seek professional help. Avoid people and places where drugs are used. That only increases the temptation to use. Follow Up with your doctor or as advised by our staff. For more information or a referral to a treatment center in your area, contact: Your local mental health center or the National Alcohol and Substance Abuse Information Center (421)-572-6056 www.addictioncareRESAAS.1Ring [employer] [place] on Alcoholism and Drug Dependence 326-650-YNQJ www.ncadd.org Marijuana Anonymous 783-179-1122 www.marijuana-anonymous.org Get Prompt Medical Attention if any of the following occur: You feel extreme depression, fear, anxiety, or anger toward yourself or others You feel out of control You feel that you may try to harm yourself or another Crutch Walking Crutch Adjustment Make sure the crutches you use are adjusted to fit you. When you stand, there should be room to fit 2-3 fingers between the top of the crutch and your armpit. Your elbow should be slightly bent when holding the hand construction craft laborer. Crutch Walking: Place the crutches forward 12" in front of and 6" to the side of your feet. Lean your weight forward as you push down on the handgrips. Your weight should be on your hands and yourstrong leg, not your armpits . Let your body swing through, landing on the strong leg. Advance the crutches forward again. The crutch and the injured leg should move together. Going Up Steps: ("Up with the good") With both crutches on the same step as your feet, push down on the handgrips. Balancing with very light pressure on the weak leg, let your hands support your weight as you raise your strong leg onto the next higher step. Transfer all your weight to your strong leg (still bent) as you move the crutches up to the next step alongside the strong leg. With your weight evenly balanced on the two crutches and your strong leg, straighten your strong knee as you raise the weak leg up to the next step. Going Down Steps: ("Down with the bad") With both crutches on the same step as your feet, push down on the handgrips. With your weight evenly balanced on the two crutches and your strong leg, bend your strong knee as you lower the weak leg down to the next step. Let your strong leg support you (still bent) as you move the crutches down alongside the weak leg. Transfer your weight to your hands, balancing with very light pressure on the weak leg as you lower your strong leg alongside your weak leg. Ibuprofen Oral tablet What is this medicine? IBUPROFEN (eye BYOO proe fen) is a non-steroidal anti-inflammatory drug (NSAID). It is used for dental pain, fever, headaches or migraines, osteoarthritis, rheumatoid arthritis, or painful monthly periods. It can also relieve minor aches and pains caused by a cold, flu, or sore throat. How should I use this medicine? Take this medicine by mouth with a glass of water. Follow the directions on the prescription label. Take this medicine with food if your stomach gets upset. Try to not lie down for at least 10 minutes after you take the medicine. Take your medicine at regular intervals. Do not take your medicine more often than directed. A special MedGuide will be given to you by the pharmacist with each prescription and refill. Be sure to read this information carefully each time. Talk to your post anesthesia care unit nurse regarding the use of this medicine in children. Special care may be needed. What side effects may I notice from receiving this medicine? Side effects that you should report to your doctor or health critical care specialist as soon as possible: allergic reactions like skin rash, itching or hives, swelling of the face, lips, or tongue black or bloody stools, blood in the urine or in vomit breathing problems changes in vision chest pain general ill feeling or flu-like symptoms nausea or vomiting redness, blistering, peeling or loosening of the skin, including inside the mouth slurred speech or weakness on one side of the body stomach pain unexplained weight gain or swelling unusually weak or tired yellowing of eyes or skin Side effects that usually do not require medical attention (report to your doctor or health critical care specialist if they continue or are bothersome): constipation or diarrhea dizziness gas or heartburn stomach upset What may interact with this medicine? Do not take this medicine with any of the following medications: cidofovir ketorolac methotrexate pemetrexed This medicine may also interact with the following medications: alcohol aspirin diuretics lithium other drugs for inflammation like prednisone warfarin What if I miss a dose? If you miss a dose, take it as soon as you can. If it is almost time for your next dose, take only that dose. Do not take double or extra doses. Where should I keep my medicine? Keep out of the reach of children. Store at room temperature between 15 and 30 degrees C (59 and 86 degrees F). Keep container tightly closed. Throw away any unused medicine after the expiration date. What should I tell my health care provider before I take this medicine? They need to know if you have any of these conditions: asthma cigarette smoker drink more than 3 alcohol containing drinks a day heart disease or circulation problems such as heart failure or leg edema (fluid retention) high blood pressure kidney disease liver disease stomach bleeding or ulcers an unusual or allergic reaction to ibuprofen, aspirin, other NSAIDS, other medicines, foods, dyes, or preservatives or trying to get breast-feeding What should I watch for while using this medicine? Tell your doctor or healthcare professional if your symptoms do not start to get better or if they get worse. This medicine does not prevent heart attack or stroke. In fact, this medicine may increase the chance of a heart attack or stroke. The chance may increase with longer use of this medicine and in people who have heart disease. If you take aspirin to prevent heart attack or stroke, talk with your doctor or health critical care specialist. Do not take other medicines that contain aspirin, ibuprofen, or naproxen with this medicine. Side effects such as stomach upset, nausea, or ulcers may be more likely to occur. Many medicines available without a prescription should not be taken with this medicine. This medicine can cause ulcers and bleeding in the stomach and intestines at any time during treatment. Ulcers and bleeding can happen without warning symptoms and can cause . To reduce your risk, do not smoke cigarettes or drink alcohol while you are taking this medicine. You may get drowsy or dizzy. Do not drive, use machinery, or do anything that needs mental alertness until you know how this medicine affects you. Do not stand or sit up quickly, especially if you are an older patient. This reduces the risk of dizzy or fainting spells. This medicine can cause you to bleed more easily. Try to avoid damage to your teeth and gums when you brush or floss your teeth. Acetaminophen Oral tablet What is this medicine? ACETAMINOPHEN (a set a PEACE lindsay fen) is a pain reliever. It is used to treat mild pain and fever. How should I use this medicine? Take this medicine by mouth with a glass of water. Follow the directions on the package or prescription label. Take your medicine at regular intervals. Do not take your medicine more often than directed. Talk to your post anesthesia care unit nurse regarding the use of this medicine in children. While this drug may be prescribed for children as young as 6 years of age for selected conditions, precautions do apply. What side effects may I notice from receiving this medicine? Side effects that you should report to your doctor or health critical care specialist as soon as possible: allergic reactions like skin rash, itching or hives, swelling of the face, lips, or tongue breathing problems fever or sore throat redness, blistering, peeling or loosening of the skin, including inside the mouth trouble passing urine or change in the amount of urine unusual bleeding or bruising unusually weak or tired yellowing of the eyes or skin Side effects that usually do not require medical attention (report to your doctor or health critical care specialist if they continue or are bothersome): headache nausea, stomach upset What may interact with this medicine? alcohol imatinib isoniazid other medicines with acetaminophen What if I miss a dose? If you miss a dose, take it as soon as you can. If it is almost time for your next dose, take only that dose. Do not take double or extra doses. Where should I keep my medicine? Keep out of reach of children. Store at room temperature between 20 and 25 degrees C (68 and 77 degrees F). Protect from moisture and heat. Throw away any unused medicine after the expiration date. What should I tell my health care provider before I take this medicine? They need to know if you have any of these conditions: if you frequently drink alcohol containing drinks liver disease an unusual or allergic reaction to acetaminophen, other medicines, foods, dyes or preservatives or trying to get breast-feeding What should I watch for while using this medicine? Tell your doctor or health critical care specialist if the pain lasts more than 10 days (5 days for children), if it gets worse, or if there is a new or different kind of pain. Also, check with your doctor if a fever lasts for more than 3 days. Do not take other medicines that contain acetaminophen with this medicine. Always read labels carefully. If you have questions, ask your doctor or pharmacist. If you take too much acetaminophen get medical help right away. Too much acetaminophen can be very dangerous and cause liver damage. Even if you do not have symptoms, it is important to get help right away. You have been given the following additional information: Sprain, Ankle, With X-Ray Sprain, Foot Marijuana Abuse Crutch Walking Ibuprofen Oral tablet Acetaminophen Oral tablet You may walk and bear weight as tolerated. Do not work for two days. (Electronically signed by James Lombardi DO 12/04/2016 3:33)
--- NOTE | 2016-12-04 03:34 | ED MAR SUMMARY ---
..... Medication Administration Record [facility] [address] [place] [address] Patient: QUENTIN PALACIOS Visit ID: [id number] 35y, F Weight: 86.1 kg Height/Length: 63 in BMI: 33.6 ALLERGIES: Codeine Given 01:37 12/04/2016 Massiel Sy Medication Administered: IBUPROFEN [PO], Dose: 600 mg PO. Medication Ordered: Ibuprofen PO 600 mg (NOW).
--- NOTE | 2016-12-04 03:34 | ED MAR SUMMARY ---
..... Medication Administration Record [facility] [address] [place] [address] Patient: QUENTIN PALACIOS Visit ID: [id number] 35y, F Weight: 86.1 kg Height/Length: 63 in BMI: 33.6 ALLERGIES: Codeine Given 01:37 12/04/2016 Massiel Sy Medication Administered: IBUPROFEN [PO], Dose: 600 mg PO. Medication Ordered: Ibuprofen PO 600 mg (NOW).
--- NOTE | 2016-12-04 06:17 | DIAGNOSTIC IMAGING REPORT ---
PROCEDURE: XR ANKLE 3 OR 4 VIEWS - RIGHT INDICATION: PAIN TECHNIQUE: Four views. COMPARISON: None. FINDINGS: Osseous structures and joint spaces are normal. IMPRESSION: 1. Normal right ankle.
--- NOTE | 2016-12-04 06:18 | DIAGNOSTIC IMAGING REPORT ---
PROCEDURE: XR FOOT 3 VIEWS - RIGHT INDICATION: PAIN TECHNIQUE: Three views. COMPARISON: None. FINDINGS: There are minor degenerative changes of the right first MTP joint. Osseous structures and joint spaces are normal. IMPRESSION: 1. Minor degenerative changes of the right first MTP joint. 2. Otherwise negative right foot.
== END 2016-12-04 02:03 | disposition home or self-care (01) ==
LOC: ED SRH 01:11
DX: S93.431A Sprain of tibiofibular ligament of right ankle, initial encounter (principal); S93.411A Sprain of calcaneofibular ligament of right ankle, initial encounter; S93.621A Sprain of tarsometatarsal ligament of right foot, initial encounter; S93.611A Sprain of tarsal ligament of right foot, initial encounter; X58.XXXA Exposure to other specified factors, initial encounter; Y93.9 Activity, unspecified; Y92.9 Unspecified place or not applicable; Y99.9 Unspecified external cause status; F12.10 Cannabis abuse, uncomplicated; F19.10 Other psychoactive substance abuse, uncomplicated; F41.9 Anxiety disorder, unspecified